=== PATIENT | female | born 1995 | race African-American/Black ===

== ENCOUNTER 2018-04-11 05:15 | Emergency (ER) | payer OTHER, SELFPAY ==
[2018-04-11 06:08] LABS: Absolute Neutrophil 7.1 K/uL (1.8-8.0); Basophils % 0.5 % (0-1.3); Eosinophils % 2.6 % (0-4.4); Hematocrit 38.3 % (36.0-45.0); Lymphocytes % 22.4 % (15.3-44.8); MCH 25.1 pg (27.0-35.0); MCV 77.8 fL (80-100); MPV 7.9 fL (7.6-11.3); Monocytes % 8.5 % (3.3-12.3); RBC Red Blood Cell Count 4.92 M/uL (3.86-4.86)
[2018-04-11 06:09] LABS: Absolute Lymphocytes (CBC) 2.4 K/uL (0.7-4.9); Absolute Monocytes 0.9 K/uL (0.1-1.3)
[2018-04-11] MEDS ORDERED: ONDANSETRON 4 MG/2 ML VIAL ONE (06:21)
[2018-04-11] MEDS ORDERED: MORPHINE 4 MG/ML SYR ONE (06:21)
[2018-04-11 06:27] LABS: Urine Bacteria >50 /HPF (<20); Urine Culture Reflex Order REFLEXED
[2018-04-11 06:28] LABS: Urine RBC 20-50 /HPF (NONE SEEN)
[2018-04-11 06:32] LABS: ALT/SGPT 13 U/L (12-78); AST/SGOT 12 U/L (15-37); Albumin 3.8 g/dL (3.4-5.0); Alkaline Phosphatase 56 U/L (45-117); Amylase Level 73 U/L (25-115); BUN Blood Urea Nitrogen 11 mg/dL (7-18); Bicarbonate 24 mmol/L (21-32); Bilirubin Direct < 0.1 mg/dL (0-0.2); Bilirubin Total 0.4 mg/dL (0.2-1.0); Glucose Level 97 mg/dL (74-106); Lipase 145 U/L (73-393); Potassium 3.6 mmol/L (3.5-5.1); Protein, Total 7.3 g/dL (6.4-8.2); Sodium Level 142 mmol/L (136-145)
[2018-04-11 06:38] LABS: Urine Blood 3+ (NEG); Urine Glucose NEGATIVE (NEG); Urine Protein 3+ (NEG); Urine Specific Gravity 1.025 (1.005-1.030)
--- NOTE | 2018-04-11 08:07 | RAD REPORT ---
EXAM DESCRIPTION: CT - Abdomen Pelvis W Contrast - 04/11/2018 7:23 am CLINICAL HISTORY: Abdominal pain/right flank pain with dysuria COMPARISON: none. TECHNIQUE: Computed axial tomography of the abdomen pelvis was obtained. 100 cc Isovue-300 was admin istered intravenously. Oral contrast was not requested which limits evaluation of bowel. All CT scans are performed using dose optimization technique as appropriate and may include automated exposure control or mA/KV adjustment according to patient size. FINDINGS: A couple of vague subcentimeter low-density areas are present within the right lobe of the liver Spleen, pancreas, adrenal and kidneys appear unremarkable. There is no evidence of diverticulitis. The evaluation of the appendix is limited without visualizati on of a gross abnormality appear A 2 centimeter right ovarian cyst is present with a small amount free fluid IMPRESSION: A 2 centimeter right ovarian cyst is present with a small amount free fluid A couple vague subcentimeter low-density areas within the liver are too small to characterize. Follow -up ultrasound in 3 months is recommended for re-evaluation
--- NOTE | 2018-04-11 11:00 | RAD REPORT ---
EXAM DESCRIPTION: CT - Pelvis Wo Cont - 04/11/2018 10:44 am CLINICAL HISTORY: Abdominal pain/right flank pain COMPARISON: April 11, 2017 cat scan TECHNIQUE: Computed axial tomography of the pelvis was obtained. Oral contrast was given. All CT scans are performed using dose optimization technique as appropriate and may include automated exposure control or mA/KV adjustment according to patient size. FINDINGS: The appendix is normal caliber. It contains contrast. No change since the prior examination. IMPRESSION: Normal appendix
--- NOTE | 2018-04-11 11:13 | ER ---
Nurse's Notes [facility] Name: Tyrell Ribera Age: 22 yrs Sex: Female : 1995 Arrival Date: 04/11/2018 Time: 05:16 Bed 5 Private MD: Diagnosis: Unspecified ovarian cysts;Urinary tract infection, site not specified Presentation: 04/11 05:32 Presenting complaint: Patient states: right flank pain, lower abd pain and burning with ak1 urination since 2200 last night. Transition of care: patient was not received from another setting of care. Onset of symptoms was April 10, 2018. Risk Assessment: Do you want to hurt yourself or someone else? Patient reports no desire to harm self or others. Initial Sepsis Screen: Does the patient meet any 2 criteria? No. Patient's initial sepsis screen is negative. Does the patient have a suspected source of infection? No. Patient's initial sepsis screen is negative. Care prior to arrival: None. 05:32 Method Of Arrival: Wheelchair ak1 05:32 Acuity: GERMAN 3 ak1 Triage Assessment: 05:34 General: Appears uncomfortable, Behavior is calm, cooperative. Pain: Complains of pain ak1 in right mid back and right low back. EENT: No signs and/or symptoms were reported regarding the EENT system. Neuro: No deficits noted. Cardiovascular: No deficits noted. Respiratory: No deficits noted. GI: Abdomen is flat, Reports lower abdominal pain. : Reports burning with urination, since last night. Derm: No signs and/or symptoms reported regarding the dermatologic system. Musculoskeletal: No signs and/or symptoms reported regarding the musculoskeletal system. 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 ak1 Historical: - Allergies: 05:34 No Known Allergies; ak1 - Home Meds: 05:34 None [Active]; ak1 - PMHx: 05:34 None; ak1 - PSHx: 05:34 None; ak1 - Immunization history:: Adult Immunizations unknown. - Social history:: Smoking status: Patient/guardian denies using tobacco. - Ebola Screening: : No symptoms or risks identified at this time. Screenin:35 Abuse screen: Denies threats or abuse. Denies injuries from another. Nutritional ak1 screening: No deficits noted. Tuberculosis screening: No symptoms or risk factors identified. Fall Risk None identified. Assessment: 05:36 GI: Bowel sounds present X 4 quads. Abd is soft X 4 quads Abdomen is tender to ak1 palpation in suprapubic area. 06:26 Reassessment: Patient and/or family updated on plan of care and expected duration. Pain ea level reassessed. Patient is alert, oriented x 3, equal unlabored respirations, skin warm/dry/pink. 07:01 Reassessment: report given to Jeramy YU ak1 07:03 General: Appears in no apparent distress. uncomfortable, Behavior is calm, cooperative, hj appropriate for age. Pain: Complains of pain in suprapubic area. Neuro: Level of Consciousness is awake, alert, obeys commands, Oriented to person, place, time, situation, Appropriate for age. Cardiovascular: Capillary refill < 3 seconds Patient's skin is warm and dry. Respiratory: Airway is patent Respiratory effort is even, unlabored, Respiratory pattern is regular, symmetrical. GI: Abdomen is non-distended, Bowel sounds present X 4 quads. Abd is soft X 4 quads Abdomen is tender to palpation in suprapubic area. : No signs and/or symptoms were reported regarding the genitourinary system. EENT: No signs and/or symptoms were reported regarding the EENT system. Derm: No signs and/or symptoms reported regarding the dermatologic system. Musculoskeletal: No signs and/or symptoms reported regarding the musculoskeletal system. 07:26 Reassessment: wheeled to CT;. hj 07:40 Reassessment: back from CT;. hj 07:55 Reassessment: Patient and/or family updated on plan of care and expected duration. Pain hj level reassessed. Patient is alert, oriented x 3, equal unlabored respirations, skin warm/dry/pink. awaiting CT results and POC;. 09:26 Reassessment: Patient and/or family updated on plan of care and expected duration. Pain hj level reassessed. Patient is alert, oriented x 3, equal unlabored respirations, skin warm/dry/pink. awaiting CT;. 10:10 Reassessment: Patient resting comfortably in bed in NAD when I entered the room. aj General: Appears in no apparent distress. comfortable, Behavior is calm, cooperative, appropriate for age. Neuro: Level of Consciousness is awake, alert, obeys commands, Oriented to person, place, time, situation, Appropriate for age. Respiratory: Airway is patent Respiratory effort is even, unlabored, Respiratory pattern is regular, symmetrical. GI: Abdomen is flat, non-distended, Abd is soft X 4 quads. Derm: Skin is intact, is healthy with good turgor, Skin is pink, warm \T\ dry. normal. Vital Signs: 05:31 BP 136 / 74; Pulse 73; Resp 16; Temp 97.7(O); Pulse Ox 100% on R/A; Weight 52.16 kg ak1 (R); Height 5 ft. 8 in. (172.72 cm) (R); Pain 10/10; 06:30 BP 119 / 63; Pulse 68; Resp 18; Temp 98(O); Pulse Ox 100% on R/A; ea 07:55 BP 130 / 71; Pulse 72; Resp 18; Pulse Ox 100% on R/A; hj 09:26 BP 128 / 69; Pulse 68; Resp 18; Pulse Ox 100% on R/A; hj 10:53 BP 126 / 69; Pulse 63; Resp 20; Pulse Ox 99% on R/A; aj 05:31 Body Mass Index 17.49 (52.16 kg, 172.72 cm) ak1 ED Course: 05:16 Patient arrived in ED. ds1 05:25 Parish Guzman MD is Attending Physician. tw4 05:31 Arm band placed on Patient placed in an exam room, on a stretcher, on pulse oximetry, ak1 Patient notified of wait time. 05:33 Triage completed. ak1 05:35 Patient has correct armband on for positive identification. Bed in low position. Call ak1 light in reach. Side rails up X 1. Pulse ox on. NIBP on. 05:41 Inserted saline lock: 20 gauge in right antecubital area, using aseptic technique. ak1 ,using aseptic technique. placed by Kayla Gregory RN Blood collected. 06:08 Isma Otero PA is PHCP. joseph 06:17 Hepatic Function Sent. ak1 06:17 Creatinine for Radiology Sent. ak1 06:17 CBC with Diff Sent. ak1 06:17 Basic Metabolic Panel Sent. ak1 06:17 Amylase, Serum Sent. ak1 07:02 Jeramy Pat, RN is Primary Nurse. hj 07:23 CT Abd/Pelvis - W/Contrast In Process Unspecified. EDMS 07:27 CT completed. Patient tolerated procedure well. Patient moved back from CT. vr 10:[address] via wheelchair. sj 10:44 Pelvis Wo Cont In Process Unspecified. EDMS 11:19 No provider procedures requiring assistance completed. IV discontinued, intact, aj bleeding controlled, No redness/swelling at site. Pressure dressing applied. Administered Medications: 06:26 Drug: morphine 4 mg Route: IVP; Site: right antecubital; ea 06:59 Follow up: Response: No adverse reaction; Pain is decreased ea 06:26 Drug: Zofran 4 mg Route: IVP; Site: right antecubital; ea 06:59 Follow up: Response: No adverse reaction; Pain is decreased ea Outcome: 11:12 Discharge ordered by MD. jmjose 11:19 Discharged to home ambulatory. aj 11:19 Condition: good 11:19 Discharge instructions given to patient, Instructed on discharge instructions, follow up and referral plans. medication usage, Demonstrated understanding of instructions, follow-up care, medications, Prescriptions given X 2. 11:22 Patient left the ED. aj Addendum: 04/15/2018 16:00 Addendum: Culture Results: Positive urine culture. Bacteria is resistant to, has i w intermediate sensitivity, or is not tested against prescribed antibiotics. Report given to JENAE for further evaluation and then to vp hr diversity for follow up with patient. Phone call Attempt #1 no answer, only busy signal, called multiple times. Signatures: Dispatcher [employer] EDMS Kalie Ndiaye RN RN aj Mickail, Joel, PA PA jmm Jones, Susan sj Sanford, Demi ds1 Itzel Reno RN RN iw Davis, Victoria vr Krenek, Amber, RN RN ak1 Jeramy Pat, Vidhi Briggs RN, RN RN ea Wadley, Terrence, MD MD tw4
--- NOTE | 2018-04-11 11:13 | EDPHYS ---
Physician Documentation [facility] Name: Tyrell Ribera Age: 22 yrs Sex: Female : 1995 Arrival Date: 04/11/2018 Time: 05:16 Bed 5 Private MD: ED Physician Parish Guzman HPI: 04/11 06:15 This 22 yrs old Black Female presents to ER via Wheelchair with complaints of Abdominal jmm Pain, Back Pain. 06:15 The patient presents with abdominal pain right flank pain. Onset: The symptoms/episode jmm began/occurred acutely, this morning at 0100. The symptoms radiate to right lower quadrant. Associated signs and symptoms: Pertinent positives: nausea, Pertinent negatives: dysuria, fever, vomiting. This is a 22 year old female with no chronic medical conditions that presents to the ED with right flank pain beginning earlier this morning at approx 0100. Patient states the pain begins at her right flank and radiates to her right lower abdomen. Denies hx of kidney stone, denies hematuria, denies vomiting, but states she is nauseas. Denies previous surgical history. . 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 ak1 Historical: - Allergies: 05:34 No Known Allergies; ak1 - Home Meds: 05:34 None [Active]; ak1 - PMHx: 05:34 None; ak1 - PSHx: 05:34 None; ak1 - Immunization history:: Adult Immunizations unknown. - Social history:: Smoking status: Patient/guardian denies using tobacco. - Ebola Screening: : No symptoms or risks identified at this time. ROS: 06:15 Constitutional: Negative for body aches, chills, fever. jmm 06:15 Respiratory: Negative for shortness of breath. 06:15 Abdomen/GI: Positive for abdominal pain. 06:15 Back: Positive for flank pain, on the right. 06:15 : Negative for hematuria. 06:15 All other systems are negative. Exam: 06:15 Head/Face: atraumatic. jmm 06:15 Constitutional: The patient appears alert, awake, uncomfortable. 06:15 Cardiovascular: Rate: normal, Rhythm: regular. 06:15 Respiratory: the patient does not display signs of respiratory distress, Respirations: normal, Breath sounds: are clear throughout. 06:15 Abdomen/GI: Inspection: abdomen appears normal, Bowel sounds: normal, Palpation: soft, mild abdominal tenderness, in the right lower quadrant. 06:15 Back: CVA tenderness, that is moderate, is noted on the right. 06:15 Musculoskeletal/extremity: ROM: intact in all extremities. 06:15 Skin: Appearance: Color: normal in color. 06:15 Neuro: Orientation: is normal, Mentation: is normal, Memory: is normal. 06:15 Psych: Behavior/mood is pleasant, cooperative. Vital Signs: 05:31 BP 136 / 74; Pulse 73; Resp 16; Temp 97.7(O); Pulse Ox 100% on R/A; Weight 52.16 kg ak1 (R); Height 5 ft. 8 in. (172.72 cm) (R); Pain 10/10; 06:30 BP 119 / 63; Pulse 68; Resp 18; Temp 98(O); Pulse Ox 100% on R/A; ea 07:55 BP 130 / 71; Pulse 72; Resp 18; Pulse Ox 100% on R/A; hj 09:26 BP 128 / 69; Pulse 68; Resp 18; Pulse Ox 100% on R/A; hj 10:53 BP 126 / 69; Pulse 63; Resp 20; Pulse Ox 99% on R/A; aj 05:31 Body Mass Index 17.49 (52.16 kg, 172.72 cm) ak1 MDM: 05:25 Patient medically screened. tw4 11:11 Data reviewed: vital signs, nurses notes. joseph 11:11 Data reviewed: radiologic studies, CT scan. Counseling: I had a detailed discussion joseph with the patient and/or guardian regarding: the historical points, exam findings, and any diagnostic results supporting the discharge/admit diagnosis, the presence of at least one elevated blood pressure reading (>120/80) during this emergency department visit, lab results, radiology results, to return to the emergency department if symptoms worsen or persist or if there are any questions or concerns that arise at home. Response to treatment: the patient's symptoms have markedly improved after treatment. 11:11 ED course: Patient advised of the need to follow up with OBGYN for further evaluation. joseph Patient advised to return to the ED if she develops increased pain, fever, vomiting, or any other concerning symptoms. Patient understands and agrees with the plan of care. . 04/11 05:25 Order name: Amylase, Serum 4 04/11 05:25 Order name: Basic Metabolic Panel tw4 04/11 05:25 Order name: CBC with Diff 04/11 05:25 Order name: Creatinine for Radiology 04/11 05:25 Order name: Hepatic Function 4 04/11 05:25 Order name: Lipase; Complete Time: 06:34 tw4 04/11 05:25 Order name: Urine Microscopic Only; Complete Time: 06:34 tw4 04/11 05:26 Order name: Amylase Level; Complete Time: 06:34 EDMS 04/11 05:26 Order name: Basic Metabolic Panel; Complete Time: 06:34 EDMS 04/11 05:26 Order name: CBC with Automated Diff; Complete Time: 06:34 EDMS 04/11 05:26 Order name: Creatinine (Radiology Only); Complete Time: 06:13 EDMS 04/11 05:26 Order name: Liver (Hepatic) Function; Complete Time: 06:34 EDMS 04/11 05:35 Order name: Urine Dipstick--Ancillary (enter results); Complete Time: 07:07 nv 04/11 05:35 Order name: Urine --Ancillary (enter results); Complete Time: 07:07 mt 04/11 05:25 Order name: IV Saline Lock; Complete Time: 05:41 tw4 04/11 05:25 Order name: Labs collected and sent; Complete Time: 05:41 tw4 04/11 05:25 Order name: Urine Dipstick-Ancillary (obtain specimen); Complete Time: 05:41 4 04/11 06:15 Order name: CT Abd/Pelvis - W/Contrast; Complete Time: 08:16 [facility] 04/11 06:29 Order name: Urine Culture EDUT 04/11 09:10 Order name: Pelvis Wo Cont; Complete Time: 11:09 EDMS Administered Medications: 06:26 Drug: morphine 4 mg Route: IVP; Site: right antecubital; ea 06:59 Follow up: Response: No adverse reaction; Pain is decreased ea 06:26 Drug: Zofran 4 mg Route: IVP; Site: right antecubital; ea 06:59 Follow up: Response: No adverse reaction; Pain is decreased ea Disposition: 04/12 01:21 Co-signature as Attending Physician, Parish Guzman MD I agree with the assessment and tw4 plan of care. Disposition: 04/11/18 11:12 Discharged to Home. Impression: Unspecified ovarian cysts, Urinary tract infection, site not specified. - Condition is Stable. - Discharge Instructions: Ovarian Cyst, Urinary Tract Infection. - Prescriptions for Cephalexin 500 mg Oral Capsule - take 1 capsule by ORAL route every 12 hours for 10 days; 20 capsule. Ultram 50 mg Oral Tablet - take 1 tablet by ORAL route every 6 hours As needed; 12 tablet. - Medication Reconciliation Form, Thank You Letter, Antibiotic Education, Prescription Opioid Use form. - Follow up: Private Physician; When: 2 - 3 days; Reason: Continuance of care. Signatures: Dispatcher [employer] [facility] Kalie Ndiaye, RN RN Isma Palomares PA PA Graciela Garcia, RN RN ak1 Vidhi Spear, RN RN Parish Martin MD MD tw4 Corrections: (The following items were deleted from the chart) 04/11 09:10 08:22 Pelvis W/Cont+CT.RAD.BRZ ordered. [facility] 11:22 11:12 04/11/2018 11:12 Discharged to Home. Impression: Unspecified ovarian cysts; aj Urinary tract infection, site not specified. Condition is Stable. Forms are Medication Reconciliation Form, Thank You Letter, Antibiotic Education, Prescription Opioid Use. Follow up: Private Physician; When: 2 - 3 days; Reason: Continuance of care. [facility]
[2018-04-11 11:35] VITALS: TEMP 98
[2018-04-11 11:39] VITALS: BP 126/69; O2SAT 99
== END 2018-04-11 11:22 | disposition home or self-care (01) ==
LOC: ER 05:15
DX: N39.0 Urinary tract infection, site not specified (principal); N83.209 Unspecified ovarian cyst, unspecified side
CPT/HCPCS: 36415; 72192; 74177; 80048; 80076; 81003; 81015; 81025; 82150; 83690; 85025; 87077; 87086; 87088; 87186; 96374; 96375; 99284; J2405; Q9967

== ENCOUNTER 2018-10-24 18:20 | Emergency (ER) | payer SELFPAY ==
[2018-10-24 19:18] LABS: Urine Blood 3+ (NEG); Urine Glucose NEGATIVE (NEG); Urine Protein 2+ (NEG); Urine pH 5.5 (5.0-7.0)
[2018-10-24 19:55] LABS: Urine Bacteria >50 /HPF (<20); Urine Culture Reflex Order REFLEXED
[2018-10-24] MEDS ORDERED: ONDANSETRON 4 MG/2 ML VIAL ONE (20:02)
[2018-10-24 20:04] LABS: ALT/SGPT 15 U/L (12-78); AST/SGOT 11 U/L (15-37); Albumin 3.7 g/dL (3.4-5.0); Alkaline Phosphatase 63 U/L (45-117); BUN Blood Urea Nitrogen 10 mg/dL (7-18); Bicarbonate 28 mmol/L (21-32); Bilirubin Direct 0.1 mg/dL (0-0.2); Bilirubin Total 0.2 mg/dL (0.2-1.0); Glucose Level 110 mg/dL (74-106); Lipase 182 U/L (73-393); Potassium 3.9 mmol/L (3.5-5.1); Protein, Total 7.6 g/dL (6.4-8.2); Sodium Level 142 mmol/L (136-145)
[2018-10-24 20:07] LABS: Absolute Lymphocytes (CBC) 2.6 K/uL (0.7-4.9); Absolute Neutrophil 8.7 K/uL (1.8-8.0); Basophils % 0.3 % (0-1.3); Eosinophils % 0.9 % (0-4.4); Hematocrit 39.3 % (36.0-45.0); MPV 7.8 fL (7.6-11.3); Monocytes % 8.1 % (3.3-12.3); RBC Red Blood Cell Count 4.75 M/uL (3.86-4.86)
[2018-10-24] MEDS ORDERED: CEFTRIAXONE/SWI 1gm 1 GM/10 ML SYR ONE (20:20)
--- NOTE | 2018-10-24 21:38 | RAD REPORT ---
EXAM DESCRIPTION: CT - Abdomen Pelvis W Contrast - 10/24/2018 9:07 pm CLINICAL HISTORY: Abdominal pain/right lower quadrant pain with vomiting COMPARISON: April 2018 TECHNIQUE: Computed axial tomography of the abdomen pelvis was obtained. 100 cc Isovue-300 was admin istered intravenously. Oral contrast was not requested which limits evaluation of bowel. All CT scans are performed using dose optimization technique as appropriate and may include automated exposure control or mA/KV adjustment according to patient size. FINDINGS: Couple of tiny low-density hepatic lesions are unchanged and likely benign Spleen, pancreas, adrenal and kidneys appear unremarkable. There is no evidence of diverticulitis. Evaluation of the appendix is limited secondary to lack of or al contrast administration. No gross abnormality of the appendix is seen. IMPRESSION: No acute abnormality is displayed.
--- NOTE | 2018-10-24 21:58 | ER ---
Nurse's Notes [facility] Name: Tyrell Ribera Age: 23 yrs Sex: Female : 1995 Arrival Date: 10/24/2018 Time: 18:23 Bed 23 Private MD: None, None Diagnosis: Muscle spasm of back;Urinary tract infection, site not specified Presentation: 10/24 18:31 Presenting complaint: Patient states: RLQ pain that started today, reports n/v today, sg reports that pain is sharp and is an 8/10 today, reports having chills last night. Transition of care: patient was not received from another setting of care. Onset of symptoms was October 24, 2018. Risk Assessment: Do you want to hurt yourself or someone else? Patient reports no desire to harm self or others. Initial Sepsis Screen: Does the patient meet any 2 criteria? No. Patient's initial sepsis screen is negative. Does the patient have a suspected source of infection? No. Patient's initial sepsis screen is negative. Care prior to arrival: None. 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 - Social history:: Smoking status: Patient/guardian denies using tobacco. - Ebola Screening: : Patient negative for fever greater than or equal to 101.5 degrees Fahrenheit, and additional compatible Ebola Virus Disease symptoms Patient denies exposure to infectious person Patient denies travel to an Ebola-affected area in the 21 days before illness onset No symptoms or risks identified at this time. Screenin:47 Abuse screen: Denies threats or abuse. Denies injuries from another. Nutritional mg2 screening: No deficits noted. Tuberculosis screening: No symptoms or risk factors identified. Fall Risk IV access (20 points). Assessment: 19:45 General: Appears in no apparent distress. comfortable, Behavior is calm, cooperative. mg2 Pain: Complains of pain in right flank Pain does not radiate. Pain currently is 2 out of 10 on a pain scale. Quality of pain is described as aching, Pain began gradually, 1 day ago. Is intermittent. Neuro: Level of Consciousness is awake, alert, obeys commands, Oriented to person, place, time, situation. Cardiovascular: Capillary refill < 3 seconds Patient's skin is warm and dry. Respiratory: Airway is patent Respiratory effort is even, unlabored, Respiratory pattern is regular, symmetrical. GI: Reports nausea. : Urine is cloudy, Reports pain in right flank(s). EENT: No signs and/or symptoms were reported regarding the EENT system. Derm: Skin is intact, is healthy with good turgor, Skin is pink, warm \T\ dry. normal. Musculoskeletal: No signs and/or symptoms reported regarding the musculoskeletal system. 22:00 Reassessment: Patient appears in no apparent distress at this time. patient improved. mg2 Vital Signs: 18:32 BP 139 / 77; Pulse 75; Resp 17; Temp 97.7; Pulse Ox 100% on R/A; Pain 7/10; sg 20:40 BP 132 / 87; Pulse 80; Resp 18; Pulse Ox 100% on R/A; Pain 2/10; mg2 22:00 BP 128 / 78; Pulse 80; Resp 18; Pulse Ox 100% on R/A; Pain 0/10; mg2 ED Course: 18:23 Patient arrived in ED. sb2 18:24 None, None is Private Physician. sb2 18:28 Himanshu Covarrubias PA is PHCP. jr8 18:28 Philip Gill MD is Attending Physician. jr8 18:32 Triage completed. sg 18:34 Arm band placed on. sg 19:05 Milan Robbins, JOSE is Primary Nurse. mg2 19:29 No provider procedures requiring assistance completed. Inserted saline lock: 22 gauge mg2 in right antecubital area, using aseptic technique. Blood collected. 19:47 Patient has correct armband on for positive identification. Door closed. Warm blanket mg2 given. 20:[address] vm2 21:07 CT completed. Patient tolerated procedure well. Patient moved back from CT. nj 22:05 IV discontinued, intact, bleeding controlled, No redness/swelling at site. Pressure mg2 dressing applied. Administered Medications: 19:58 Drug: Zofran 4 mg Route: IVP; Site: right antecubital; mg2 20:38 Follow up: Response: No adverse reaction; Marked relief of symptoms; Nausea is decreasedmg2 20:13 Drug: Rocephin - (cefTRIAXone) 1 grams Route: IVPB; Infused Over: 30 mins; Site: right mg2 antecubital; 20:39 Follow up: Response: No adverse reaction; IV Status: Completed infusion mg2 Outcome: 21:57 Discharge ordered by . [place] 22:05 Discharged to home ambulatory, with family. mg2 22:05 Condition: stable 22:05 Discharge instructions given to patient, family, Instructed on discharge instructions, follow up and referral plans. medication usage, Demonstrated understanding of instructions, follow-up care, medications, Prescriptions given X 3. 22:07 Patient left the ED. mg2 Addendum: 10/27/2018 07:31 Addendum: Culture Results: Positive urine culture. No further action required. Bacteria s s sensitive to prescribed antibiotic. Signatures: Marvin Dudley RN RN Agueda Frazier RN RN Himanshu Covarrubias PA PA jr8 Darrell Noel [place] [id number] [address] [facility] Milan Robbins RN RN mg2 Corrections: (The following items were deleted from the chart) 10/24 20:28 20:23 Patient [address]
--- NOTE | 2018-10-24 21:58 | EDPHYS ---
Physician Documentation [facility] Name: Tyrell Ribera Age: 23 yrs Sex: Female : 1995 Arrival Date: 10/24/2018 Time: 18:23 Bed 23 Private MD: None, None ED Physician Philip Gill HPI: 10/24 19:16 This 23 yrs old Black Female presents to ER via Ambulatory with complaints of Back jr8 Pain, Nausea. 19:16 The patient presents with pain that is acute, and tenderness. The symptoms are located jr8 in the right mid back and right low back. Onset: The symptoms/episode began/occurred acutely, this morning. The pain does not radiate. Associated signs and symptoms: Pertinent positives: nausea. The problem was sustained from unknown cause. Modifying factors: The patient symptoms are alleviated by nothing, the patient symptoms are aggravated by any movement. Severity of symptoms: At their worst the symptoms were moderate, in the emergency department the symptoms are unchanged. The patient has not experienced similar symptoms in the past. The patient has not recently seen a physician. 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 - Social history:: Smoking status: Patient/guardian denies using tobacco. - Ebola Screening: : Patient negative for fever greater than or equal to 101.5 degrees Fahrenheit, and additional compatible Ebola Virus Disease symptoms Patient denies exposure to infectious person Patient denies travel to an Ebola-affected area in the 21 days before illness onset No symptoms or risks identified at this time. ROS: 21:55 Eyes: Negative for injury, pain, redness, and discharge, ENT: Negative for injury, jr8 pain, and discharge, Neck: Negative for injury, pain, and swelling, Cardiovascular: Negative for chest pain, palpitations, and edema, Respiratory: Negative for shortness of breath, cough, wheezing, and pleuritic chest pain, Abdomen/GI: Negative for abdominal pain, nausea, vomiting, diarrhea, and constipation, MS/Extremity: Negative for injury and deformity, Skin: Negative for injury, rash, and discoloration, Neuro: Negative for headache, weakness, numbness, tingling, and seizure. 21:55 Back: Positive for pain at rest, pain with movement, of the right mid back and right low back. Exam: 21:55 Eyes: Pupils equal round and reactive to light, extra-ocular motions intact. Lids and jr8 lashes normal. Conjunctiva and sclera are non-icteric and not injected. Cornea within normal limits. Periorbital areas with no swelling, redness, or edema. ENT: Nares patent. No nasal discharge, no septal abnormalities noted. Tympanic membranes are normal and external auditory canals are clear. Oropharynx with no redness, swelling, or masses, exudates, or evidence of obstruction, uvula midline. Mucous membranes moist. Neck: Trachea midline, no thyromegaly or masses palpated, and no cervical lymphadenopathy. Supple, full range of motion without nuchal rigidity, or vertebral point tenderness. No Meningismus. Cardiovascular: Regular rate and rhythm with a normal S1 and S2. No gallops, murmurs, or rubs. Normal PMI, no JVD. No pulse deficits. Respiratory: Lungs have equal breath sounds bilaterally, clear to auscultation and percussion. No rales, rhonchi or wheezes noted. No increased work of breathing, no retractions or nasal flaring. Abdomen/GI: Soft, non-tender, with normal bowel sounds. No distension or tympany. No guarding or rebound. No evidence of tenderness throughout. Skin: Warm, dry with normal turgor. Normal color with no rashes, no lesions, and no evidence of cellulitis. MS/ Extremity: Pulses equal, no cyanosis. Neurovascular intact. Full, normal range of motion. Neuro: Awake and alert, GCS 15, oriented to person, place, time, and situation. Cranial nerves II-XII grossly intact. Motor strength 5/5 in all extremities. Sensory grossly intact. Cerebellar exam normal. Normal gait. 21:55 Back: pain, that is moderate, of the right mid back, ROM is painful, normal spinal alignment noted, CVA tenderness, is absent, muscle spasm, is appreciated in the right mid back and right low back. Vital Signs: 18:32 BP 139 / 77; Pulse 75; Resp 17; Temp 97.7; Pulse Ox 100% on R/A; Pain 7/10; sg 20:40 BP 132 / 87; Pulse 80; Resp 18; Pulse Ox 100% on R/A; Pain 2/10; mg2 22:00 BP 128 / 78; Pulse 80; Resp 18; Pulse Ox 100% on R/A; Pain 0/10; mg2 MDM: 18:28 Patient medically screened. jr8 21:55 Data reviewed: vital signs, nurses notes, lab test result(s), radiologic studies, CT jr8 scan, and as a result, I will discharge patient. Data interpreted: Pulse oximetry: on room air is 100 %. Interpretation: normal. Counseling: I had a detailed discussion with the patient and/or guardian regarding: the historical points, exam findings, and any diagnostic results supporting the discharge/admit diagnosis, lab results, radiology results, the need for outpatient follow up, a family practitioner, to return to the emergency department if symptoms worsen or persist or if there are any questions or concerns that arise at home. 10/24 19:03 Order name: Urine Dipstick--Ancillary (enter results) ms 10/24 19:18 Order name: Urine Microscopic Only ms 10/24 19:19 Order name: Urine Dipstick-Ancillary; Complete Time: 19:31 EDAL 10/24 19:21 Order name: Basic Metabolic Panel [facility] 10/24 19:21 Order name: CBC with Diff mg2 10/24 19:21 Order name: Creatinine for Radiology [facility] 10/24 19:21 Order name: Hepatic Function mg2 10/24 19:21 Order name: Lipase [facility] 10/24 19:32 Order name: Urine --Ancillary (enter results) 10/24 19:56 Order name: Urine Microscopic Only; Complete Time: 20:00 EDAL 10/24 20:01 Order name: Creatinine (Radiology Only); Complete Time: 20:01 EDAL 10/24 20:05 Order name: Basic Metabolic Panel; Complete Time: 20:16 EDAL 10/24 20:05 Order name: Liver (Hepatic) Function; Complete Time: 20:16 EDAL 10/24 20:05 Order name: Lipase; Complete Time: 20:16 EDAL 10/24 18:53 Order name: Urine Test (obtain specimen); Complete Time: 19:29 [facility] 10/24 18:53 Order name: Urine Dipstick-Ancillary (obtain specimen); Complete Time: 19:05 [facility] 10/24 19:21 Order name: IV Saline Lock; Complete Time: 19:28 mg2 10/24 19:21 Order name: Labs collected and sent; Complete Time: :28 mg2 10/24 20:01 Order name: CT Abd/Pelvis - W/Contrast jr 10/24 20:12 Order name: CBC with Automated Diff; Complete Time: 20:16 EDMS 10/24 20:17 Order name: Urine --Ancillary; Complete Time: 20:19 EDMS 10/24 21:41 Order name: CT; Complete Time: 21:55 EDMS Administered Medications: 19:58 Drug: Zofran 4 mg Route: IVP; Site: right antecubital; mg2 20:38 Follow up: Response: No adverse reaction; Marked relief of symptoms; Nausea is decreasedmg2 20:13 Drug: Rocephin - (cefTRIAXone) 1 grams Route: IVPB; Infused Over: 30 mins; Site: right mg2 antecubital; 20:39 Follow up: Response: No adverse reaction; IV Status: Completed infusion mg2 Disposition: 10/24/18 21:57 Discharged to Home. Impression: Muscle spasm of back, Urinary tract infection, site not specified. - Condition is Stable. - Discharge Instructions: Muscle Cramps and Spasms, Urinary Tract Infection, Adult, Back Exercises, [id number], Heat Therapy. - Prescriptions for Ibuprofen 800 mg Oral Tablet - take 1 tablet by ORAL route every 12 hours As needed take with food; 20 tablet. Cyclobenzaprine 10 mg Oral Tablet - take 1 tablet by ORAL route every 8 hours As needed; 30 tablet. Macrobid 100 mg Oral Capsule - take 1 capsule by ORAL route every 12 hours for 7 days; 14 capsule. - Medication Reconciliation Form, Thank You Letter, Antibiotic Education, Prescription Opioid Use, Work release form form. - Follow up: Private Physician; When: 2 - 3 days; Reason: Recheck today's complaints, Continuance of care, Re-evaluation by your physician. - Problem is new. - Symptoms have improved. Addendum: 10/27/2018 01:36 Co-signature as Attending Physician, Philip Gill MD. g s Signatures: Dispatcher [employer] EDAL Marvin Dudley RN RN sg Himanshu Covarrubias, PA PA Philip Schroeder MD MD gs Gardose, Michele, RN RN mg2 Corrections: (The following items were deleted from the chart) 10/24 22:07 21:57 10/24/2018 21:57 Discharged to Home. Impression: Muscle spasm of back; Urinary mg2 tract infection, site not specified. Condition is Stable. Forms are Medication Reconciliation Form, Thank You Letter, Antibiotic Education, Prescription Opioid Use. Follow up: Private Physician; When: 2 - 3 days; Reason: Recheck today's complaints, Continuance of care, Re-evaluation by your physician. Problem is new. Symptoms have improved. jr8
[2018-10-24 22:22] VITALS: TEMP 97.7; O2SAT 100
[2018-10-24 22:37] VITALS: BP 128/78
== END 2018-10-24 22:07 | disposition home or self-care (01) ==
LOC: ER 18:20
DX: M62.830 Muscle spasm of back (principal); N39.0 Urinary tract infection, site not specified
CPT/HCPCS: 36415; 74177; 80048; 80076; 81003; 81015; 81025; 83690; 85025; 87077; 87086; 87088; 87186; 96365; 96375; 99284; J0696; J2405; Q9967

== ENCOUNTER 2024-09-01 10:20 | Emergency (ER) | payer SELFPAY ==
[2024-09-01] MEDS ORDERED: KETOROLAC 30 MG/ML INJ ONE (10:54)
[2024-09-01 11:09] LABS: Specific Gravity > 1.030 (1.005-1.030); Urine Bacteria None Seen /HPF (<20); Urine Bilirubin NEGATIVE (Negative); Urine Blood 3+ (OVER) (Negative); Urine Clarity Extremely Turbid (Clear); Urine Color Yellow (Yellow); Urine Culture Reflex Order NOT NEEDED; Urine Glucose NEGATIVE (Negative); Urine Ketones NEGATIVE (Negative); Urine Microscopic Reflex YN ORDER UMIC; Urine Mucus 2+ /HPF (None Seen); Urine Nitrite NEGATIVE (Negative); Urine Protein 1+ (Negative); Urine RBC >50 /HPF (None Seen); Urine Urobilinogen 1+ (Normal); Urine pH 6.5 (5.0-7.0)
[2024-09-01 11:10] LABS: Absolute Lymphocytes (CBC) 1.4 K/uL (0.7-4.9); Absolute Monocytes 0.6 K/uL (0.1-1.3); Absolute Neutrophil 2.1 K/uL (1.8-8.0); Basophils % 0.7 % (0-1.3); Eosinophils % 1.1 % (0-4.4); Hematocrit 38.9 % (36.0-45.0); Hemoglobin 12.5 g/dL (12.0-15.0); Lymphocytes % 33.6 % (15.3-44.8); MCH 26.5 pg (27.0-35.0); MCHC 32.1 g/dL (32.0-36.0); MCV 82.5 fL (80-100); MPV 7.6 fL (7.6-11.3); Monocytes % 14.3 % (3.3-12.3); Neutrophils % 50.3 % (41.7-73.7); Platelets 246 thou/uL (152-406); RBC Red Blood Cell Count 4.71 M/uL (3.86-4.86); Red Cell Distribution Width 15.3 % (12.1-15.2)
[2024-09-01 11:22] LABS: SARS-CoV-2 Antigen CONTROL BLUE LINE VIS/BG OK; SARS-CoV-2 Antigen Rapid Res Negative (Negative)
[2024-09-01 11:24] LABS: Anion Gap 7.7 mEq/L (5.0-15.0); Potassium 3.7 mEq/L (3.5-5.1)
--- NOTE | 2024-09-01 11:32 | EDPHYS ---
Physician Documentation [facility] Name: Tyrell Ribera Age: 29 yrs Sex: Female : 1995 Arrival Date: 09/01/2024 Time: 10:20 Bed 7 Private MD: ED Physician Domenico Childs HPI: 09/01 10:46 This 29 yrs old Black Female presents to ER via Ambulatory with complaints of Fever - bo1 Stomach pain. 10:46 The patient reports fever, Subjective temp or felt "hot" last night - but been "ill" bo1 past 3 days. Onset: The symptoms/episode began/occurred gradually, 3 day(s) ago. Associated signs and symptoms: Pertinent positives: abdominal pain, arthralgias, headache, Pertinent negatives: cough, diarrhea, vomiting. None, not known if co-workers are ill. Fiance is fine and asymptomatic. Historical: - Allergies: 10:31 No Known Allergies; hb - Home Meds: 10:31 Zoloft Oral [Active]; hb - PMHx: 10:31 depressive disorder; hb - PSHx: 10:31 None; hb - Immunization history:: Adult Immunizations up to date. - Infectious Disease History:: Denies. - Social history:: Smoking status: Patient denies any tobacco usage or history of. ROS: 10:49 Constitutional: Negative for rash and weight loss bo1 10:49 Constitutional: Positive for body aches, fever, 10:49 Neck: Negative for pain at rest, 10:49 Cardiovascular: Negative for chest pain, 10:49 Respiratory: Positive for shortness of breath, at rest. 10:49 Abdomen/GI: Positive for abdominal pain, Intermittent - Hx of tubal ligation, 10:49 Skin: Negative for rash, Exam: 11:26 Constitutional: This is a well developed, well nourished patient who is awake, alert, bo1 and in no acute distress. 11:26 Constitutional: The patient appears alert, awake, non-toxic, 11:26 Eyes: Sclera: no appreciated abnormality, 11:26 ENT: TM's: are normal, Posterior pharynx: is normal, 11:26 Neck: External neck: is normal, ROM/movement: is normal, Lymph nodes: no appreciated lymphadenopathy, 11:26 Cardiovascular: Exam negative for acute changes, Rate: normal, Rhythm: regular, Pulses: no pulse deficits are appreciated, 11:26 Respiratory: the patient does not display signs of respiratory distress, Respirations: normal, Breath sounds: are clear throughout, 11:26 Abdomen/GI: Inspection: abdomen appears normal, Palpation: abdomen is soft and non-tender, rebound tenderness, is not appreciated, 11:26 Skin: no rash present. Vital Signs: 10:30 BP 124 / 81; Pulse 78; Resp 16; Temp 99.2(O); Pulse Ox 100% on R/A; Weight 63.5 kg; hb Height 5 ft. 7 in. ; Pain 8/10; 11:48 BP 120 / 80; Pulse 75; Resp 14 S; Temp 99(O); Pulse Ox 100% on R/A; aa5 10:30 Body Mass Index 21.93 (63.50 kg, 170.18 cm) hb 10:30 Pain Scale: Adult hb MDM: 10:30 Medical Screening Exam initiated bo1 11:28 Differential diagnosis: viral Infection, URI, UTI, Fever; Flu exposure. bo1 11:29 Data reviewed: vital signs, lab test result(s), CBC, Flu: positive urinalysis. ED bo1 course: Pt is feeling better with the IV NSAID. 09/01 10:44 Order name: CBC with Diff; Complete Time: 11:14 bo1 09/01 10:44 Order name: BMP; Complete Time: 11:24 bo1 09/01 10:44 Order name: Urinalysis w/ reflexes; Complete Time: 11:14 bo1 09/01 10:44 Order name: Test, Serum bo1 09/01 10:44 Order name: SARS-COV-2 Antigen Rapid; Complete Time: 11:24 bo1 09/01 10:44 Order name: Flu; Complete Time: 11:24 bo1 09/01 10:44 Order name: Saline Lock; Complete Time: 11:06 bo1 Administered Medications: 11:06 Drug: Ketorolac IVP 30 mg IVP once Route: IVP; Site: left antecubital; aa5 11:20 Follow up: Response: No adverse reaction; Pain is decreased aa5 Disposition Summary: 09/01/24 11:32 Discharge Ordered Notes: Location: Home bo1 Problem: new bo1 Symptoms: have improved bo1 Condition: Stable bo1 Diagnosis - Influenza due to identified novel influenza A virus bo1 - UTI/ Urinary tract infection, site not specified bo1 - Fever, unspecified bo1 Followup: bo1 - With: Private Physician - When: 48 Hours - Reason: Recheck today's complaints, Continuance of care Discharge Instructions: - Discharge Summary Sheet bo1 - Urinary Tract Infection, Adult, [id number] bo1 - Influenza, Adult, [id number] bo1 Forms: - Work release form hb - Medication Reconciliation Form bo1 - Antibiotic Education bo1 - Prescription Opioid Use bo1 - Patient Portal Instructions bo1 - Leadership Thank You Letter bo1 Prescriptions: - ketorolac 10 mg Oral tablet - take 1 tablet ORAL route every 4 to 6 hours for 2 days as needed for pain; do bo1 not exceed 4 doses per 24 hrs; 10 tablet; Refills: 0, Product Selection Permitted - Macrobid 100 mg Oral Capsule - take 1 capsule ORAL route every 12 hours for 10 days; 20 capsule; Refills: 0, bo1 Product Selection Permitted - Tamiflu 75 mg Oral capsule - take 1 tablet ORAL route every 12 hours for 5 days; 10 tablet; Refills: 0, bo1 Product Selection Permitted Signatures: Dispatcher [employer] Lupe Sanchez RN RN aa5 Leigh Barriga RN RN [facility], MD IGNACIO Acñua bo1
--- NOTE | 2024-09-01 11:32 | ER ---
Nurse's Notes [facility] Name: Tyrell Ribera Age: 29 yrs Sex: Female : 1995 Arrival Date: 09/01/2024 Time: 10:20 Bed 7 Private MD: Diagnosis: Influenza due to identified novel influenza A virus;UTI/ Urinary tract infection, site not specified;Fever, unspecified Presentation: 09/01 10:30 Chief complaint: Left sided abdominal pain, nausea, and subjective fever since last hb night. Coronavirus screen: At this time, the client does not indicate any symptoms associated with coronavirus-19. Ebola Screen: No symptoms or risks identified at this time. Initial Sepsis Screen: Does the patient meet any 2 criteria? No. Patient's initial sepsis screen is negative. Does the patient have a suspected source of infection? No. Patient's initial sepsis screen is negative. Risk Assessment: Do you want to hurt yourself or someone else? Patient reports no desire to harm self or others. Onset of symptoms was September 01, 2024. 10:30 Method Of Arrival: Ambulatory hb 10:30 Acuity: GERMAN 3 hb Triage Assessment: 10:31 General: Appears in no apparent distress. Behavior is calm, cooperative. Pain: Pain hb currently is 8 out of 10 on a pain scale. Neuro: GCS 15. Historical: - Allergies: 10:31 No Known Allergies; hb - Home Meds: 10:31 Zoloft Oral [Active]; hb - PMHx: 10:31 depressive disorder; hb - PSHx: 10:31 None; hb - Immunization history:: Adult Immunizations up to date. - Infectious Disease History:: Denies. - Social history:: Smoking status: Patient denies any tobacco usage or history of. Screenin:50 [facility] ED Fall Risk Assessment (Adult) History of falling in the last 3 months, aa5 including since admission No falls in past 3 months (0 pts) Confusion or Disorientation No (0 pts) Intoxicated or Sedated No (0 pts) Impaired Gait No (0 pts) Mobility Assist Device Used No (0 pt) Altered Elimination No (0 pt) Score/Fall Risk Level 0 - 2 = Low Risk Oriented to surroundings, Maintained a safe environment, Educated pt \T\ family on fall prevention, incl call for assistance when getting out of bed. Abuse screen: Denies threats or abuse. Nutritional screening: No deficits noted. Tuberculosis screening: No symptoms or risk factors identified. Assessment: 10:50 General: Appears comfortable, Behavior is calm, cooperative, Reports chills for 12-24 aa5 hours. Pain: Complains of pain in left lower quadrant Pain currently is 8 out of 10 on a pain scale. Neuro: Level of Consciousness is awake, alert, obeys commands, Oriented to person, place, time, situation. Cardiovascular: Patient's skin is warm and dry. Respiratory: Airway is patent Respiratory effort is even, unlabored, Respiratory pattern is regular, symmetrical. GI: Abdomen is flat, non-distended, Bowel sounds present X 4 quads. Abd is soft and non tender X 4 quads. : No signs and/or symptoms were reported regarding the genitourinary system. EENT: No signs and/or symptoms were reported regarding the EENT system. Derm: Skin is dry, Skin is normal, Skin temperature is warm. Musculoskeletal: Range of motion: intact in all extremities. 11:20 Neuro: Level of Consciousness is awake, alert, obeys commands, Oriented to person, aa5 place, time, situation. Respiratory: Airway is patent Respiratory effort is even, unlabored, Respiratory pattern is regular, symmetrical. Derm: Skin is dry, Skin is normal, Skin temperature is warm. 11:48 Neuro: Level of Consciousness is awake, alert, obeys commands, Oriented to person, aa5 place, time, situation. Respiratory: Airway is patent Respiratory effort is even, unlabored, Respiratory pattern is regular, symmetrical. Derm: Skin is dry, Skin is normal, Skin temperature is warm. Vital Signs: 10:30 BP 124 / 81; Pulse 78; Resp 16; Temp 99.2(O); Pulse Ox 100% on R/A; Weight 63.5 kg; hb Height 5 ft. 7 in. ; Pain 8/10; 11:48 BP 120 / 80; Pulse 75; Resp 14 S; Temp 99(O); Pulse Ox 100% on R/A; aa5 10:30 Body Mass Index 21.93 (63.50 kg, 170.18 cm) hb 10:30 Pain Scale: Adult hb ED Course: 10:22 Patient arrived in ED. ra3 10:27 Lupe Paz, RN is Primary Nurse. aa5 10:30 Domenico Childs MD is Attending Physician. bo1 10:31 Triage completed. hb 10:32 Arm band placed on. hb 10:50 Patient has correct armband on for positive identification. Bed in low position. Call aa5 light in reach. Side rails up X 1. Pulse ox on. NIBP on. 11:06 Flu Sent. cc6 11:06 SARS-COV-2 Antigen Rapid Sent. cc6 11:06 Test, Serum Sent. cc6 11:06 Urinalysis w/ reflexes Sent. cc6 11:06 BMP Sent. cc6 11:06 CBC with Diff Sent. cc6 11:06 Initial lab(s) drawn, by mo, sent to lab. Inserted saline lock: 22 gauge in left cc6 antecubital area, using aseptic technique. Blood collected. Flushed with 10 mL NS. 11:23 No provider procedures requiring assistance completed. aa5 11:48 IV discontinued, intact, bleeding controlled, No redness/swelling at site. Pressure aa5 dressing applied. Administered Medications: 11:06 Drug: Ketorolac IVP 30 mg IVP once Route: IVP; Site: left antecubital; aa5 11:20 Follow up: Response: No adverse reaction; Pain is decreased aa5 Medication: 11:23 VIS not applicable for this client. aa5 Outcome: 11:32 Discharge ordered by . bo1 11:48 Discharged to home ambulatory, with family, aa5 11:48 Condition: stable 11:48 Discharge instructions given to patient, Instructed on discharge instructions, follow up and referral plans. medication usage, Demonstrated understanding of instructions, follow-up care, medications, Prescriptions given X 3, 11:49 Patient left the ED. aa5 Signatures: Lupe Paz, RN RN aa5 Leigh Barriga RN RN hb Alva, Ruby ra3 Domenico Childs MD MD bo1 Barbara Ovalle cc6
[2024-09-01 11:55] VITALS: O2SAT 100
[2024-09-01 11:57] VITALS: BP 120/80; TEMP 99
== END 2024-09-01 11:49 | disposition home or self-care (01) ==
LOC: ER 10:20
DX: J10.1 Influenza due to other identified influenza virus with other respiratory manifestations (principal); N39.0 Urinary tract infection, site not specified; Z11.52 Encounter for screening for COVID-19
CPT/HCPCS: 36415; 80048; 81001; 84703; 85025; 87804; 87811